=== PATIENT | female | born 1985 | race Caucasian/White ===

== ENCOUNTER 2018-05-31 21:21 | Emergency (ER) | payer SELFPAY ==
[2018-05-31] MEDS ORDERED: MAG HYDROX/AL HYDROX/SIMETH 30 ML UDC PO STA (21:47)
[2018-05-31] MEDS ORDERED: FAMOTIDINE 20 MG in SODIUM CHLORIDE 0.9% 50 ML IV STA (21:47)
[2018-05-31] MEDS ORDERED: SODIUM CHLORIDE 0.9% 1,000 ML IV ONE (21:47)
--- NOTE | 2018-05-31 21:47 | ED Physician Documentation ---
PD HPI ABD PAIN - Stated complaint Stated Complaint: FLU SX - Chief complaint Chief Complaint: Abd Pain - Additional information Additional information: 32-year-old female presents the emergency department with complaints of epigastric pain which is been intermittent and worsening over the past several days. Symptoms are brought on with food and liquids. The patient reports pain that radiates around her right upper abdomen into her right upper back. The patient denies shortness of breath. The patient denies lower abdominal pain. Symptoms reoccurred this evening after eating. Symptoms are described as moderate. No other associated symptoms. No relieving factors Review of Systems Constitutional: denies: Fever, Fatigue Eyes: denies: Discharge Ears: denies: Ear pain Nose: denies: Congestion Throat: denies: Sore throat Cardiac: denies: Chest pain / pressure Respiratory: denies: Cough GI: reports: Abdominal Pain, Nausea. denies: Vomiting, Diarrhea : denies: Dysuria Skin: denies: Rash Musculoskeletal: denies: Neck pain Neurologic: denies: Generalized weakness Immunocompromised: denies: Chemotherapy PD PAST MEDICAL HISTORY - Present Medications Home Medications: Ambulatory Orders Medication Instructions Recorded Confirmed No Known Home Medications 05/31/18 05/31/18 - Allergies Allergies/Adverse Reactions: Allergies Allergy/AdvReac Type Severity Reaction Status Date / Time No Known Drug Allergies Allergy Verified 05/31/18 21:34 PD ED PE NORMAL - General General: Alert and oriented X 3, No acute distress - HEENT HEENT: Atraumatic, PERRL, EOMI, Ears normal - Cardiac Cardiac: RRR, Strong equal pulses - Respiratory Respiratory: No respiratory distress, Clear bilaterally - Abdomen Abdomen: Soft, Non distended. No: Non tender (Tender to palpation in the epigastrium, no rebound or peritoneal signs, no tenderness in the lower abdomen) - Back Back: No CVA TTP - Derm Derm: Normal color - Extremities Extremities: No deformity, No edema - Neuro Neuro: Alert and oriented X 3, Normal speech - Psych Psych: Normal affect Results - Vitals Vitals: Vital Signs - 24 hr 05/31/18 05/31/18 05/31/18 21:31 22:41 23:12 Temperature 36.7 C Heart Rate 69 71 85 Respiratory 18 16 16 Rate Blood Pressure 104/67 99/61 126/76 O2 Saturation 98 99 99 Oxygen O2 Source Room air - EKG (time done) No standard instances Rhythm: NSR Intervals: Normal SC, QRS normal QRS: Normal Ischemia: Normal ST segments - Labs Labs: Laboratory Tests 05/31/18 05/31/18 05/31/18 21:50 21:50 22:55 WBC 5.8 RBC 4.68 Hgb 14.0 Hct 41.1 MCV 87.9 MCH 29.9 MCHC 34.0 RDW 13.3 Plt Count 205 MPV 8.0 Neut # (Auto) 3.4 Lymph # (Auto) 1.6 [place] # (Auto) 0.6 Eos # (Auto) 0.2 Baso # (Auto) 0.0 Absolute Nucleated RBC 0.00 Nucleated RBC % 0.0 Sodium 138 Potassium 3.2 L Chloride 102 Carbon Dioxide 26 Anion Gap 10.0 BUN 14 Creatinine 0.6 Estimated GFR (MDRD) 117 Glucose 106 H Calcium 8.5 Total Bilirubin 0.7 AST 34 ALT 49 Alkaline Phosphatase 50 Total Protein 7.1 Albumin 3.9 Globulin 3.2 Albumin/Globulin Ratio 1.2 Lipase 26 Serum HCG, Qual NEGATIVE Urine Color YELLOW Urine Clarity HAZY Urine pH 5.5 Ur Specific [place] >=1.030 H Urine Protein NEGATIVE Urine Glucose (UA) NEGATIVE Urine Ketones NEGATIVE Urine Occult Blood LARGE H Urine Nitrite NEGATIVE Urine Bilirubin NEGATIVE Urine Urobilinogen 1 (NORMAL) Ur Leukocyte Esterase NEGATIVE Urine RBC 6-10 H Urine WBC 0-3 Ur Squamous Epith Cells FEW Squamous Urine Crystals 6-10 Uric Acid Urine Bacteria Rare Ur Microscopic Review INDICATED Urine Culture Comments NOT INDICATED - Rads (name of study) US ruq Radiology: Final report received, See rad report ( No cholelithiasis or sonographic evidence for acute cholecystitis. ) PD MEDICAL DECISION MAKING - ED course ED course: On reevaluation the patient is resting comfortably and her symptoms are under control. The patient's workup does not reveal an acute etiology that would necessitate admission to the hospital or acute surgical consultation. The patient's symptoms most likely represent gastritis. I recommended [id number] medications and advised to not smoke. The patient will follow up with primary care and will get a outpatient EGD as needed. I advised returning for any worsening or any concerns Departure - Departure Disposition: 01 Home, Self Care Clinical Impression: Epigastric pain Condition: Good Instructions: Abdominal Pain, ED Gastritis Comments: Please follow-up with primary care for recheck and reevaluation. If your symptoms not improving you may need a referral to gastroenterology for endoscopy to further assess your symptoms. You may want to take [id number] Zantac or Pepcid to help manage her symptoms Please return to the emergency department for any worsening or any concerns
[2018-05-31] MEDS: METOCLOPRAMIDE 10 MG/2 ML VIAL IVP STA ×2 (22:01→22:03)
[2018-05-31 22:17] LABS: BASOPHILS % (AUTO) 0.6 %; EOSINOPHILS # (AUTO) 0.2 10^3/uL (0.0-0.7); EOSINOPHILS % (AUTO) 2.8 %; LYMPHOCYTES # (AUTO) 1.6 10^3/uL (1.5-3.5); LYMPHOCYTES % (AUTO) 27.1 %; MEAN CORPUSCULAR HEMOGLOBIN 29.9 pg (27.0-31.0); MEAN CORPUSCULAR VOLUME 87.9 fL (81.0-99.0); MONOCYTES # (AUTO) 0.6 10^3/uL (0.0-1.0); NEUTROPHILS # (AUTO) 3.4 10^3/uL (1.5-6.6); NEUTROPHILS % (AUTO) 58.5 %; PLT - PLATELET COUNT 205 10^3/uL (130-450); RED BLOOD COUNT 4.68 10^6/uL (4.20-5.40); RED CELL DISTRIBUTION WIDTH 13.3 % (12.0-15.0); WHITE BLOOD COUNT 5.8 x10^3/uL (4.8-10.8)
[2018-05-31 22:37] LABS: ALBUMIN 3.9 g/dL (3.2-5.5); ALBUMIN/GLOBULIN RATIO 1.2 (1.0-2.2); ALKALINE PHOSPHATASE 50 IU/L (42-121); ALT ALANINE AMINOTRANSFERASE 49 IU/L (10-60); AST ASPARTATE AMINOTRANSFERASE 34 IU/L (10-42); BILIRUBIN,TOTAL 0.7 mg/dL (0.2-1.0); BUN - BLOOD UREA NITROGEN 14 mg/dL (6-20); CALCIUM 8.5 mg/dL (8.5-10.3); CARBON DIOXIDE - CO2 26 mmol/L (21-32); CHLORIDE 102 mmol/L (101-111); CREATININE 0.6 mg/dL (0.4-1.0); GFR - MDRD 117 (>89); GLUCOSE 106 mg/dL (70-100); LIPASE 26 U/L (22-51); SODIUM 138 mmol/L (135-145); TOTAL PROTEIN 7.1 g/dL (6.7-8.2)
[2018-05-31 22:39] LABS: HCG,QUALITATIVE BLOOD NEGATIVE
[2018-05-31 23:08] LABS: BILIRUBIN,URINE NEGATIVE (NEGATIVE); GLUCOSE, URINE (UA) NEGATIVE (NEGATIVE); KETONES,URINE (UA) NEGATIVE (NEGATIVE); LEUKOCYTE ESTERASE, URINE NEGATIVE (NEGATIVE); NITRITE,URINE NEGATIVE (NEGATIVE); OCCULT BLOOD,URINE LARGE (NEGATIVE); PH,URINE 5.5 PH (5.0-7.5); PROTEIN,URINE NEGATIVE (NEGATIVE); UROBILINOGEN,URINE 1 (NORMAL) E.U./dL (NORMAL)
--- NOTE | 2018-05-31 23:10 | Ultrasound Report ---
Reason: Epigastric pain Procedure Date: 05/31/2018 Accession Number: [id number] / [id number] Procedure: US - Abdomen Limited CPT Code: FULL RESULT: EXAM: ABDOMEN ULTRASOUND LIMITED, RUQ EXAM DATE: 05/31/2018 10:34 PM. CLINICAL HISTORY: Epigastric pain. COMPARISON: None. TECHNIQUE: Real-time scanning was performed with static images obtained. FINDINGS: Liver: Mildly heterogeneous, echogenic parenchyma. 0.7 cm simple cyst in the right hepatic lobe. Main portal vein flow: Hepatopetal. Gallbladder: Normal. No stones, wall thickening, or sonographic Winters's sign. Biliary System: CBD measures 5-6 mm. No intrahepatic or extrahepatic ductal dilatation. Pancreas: Unremarkable as visualized. Right Kidney: 11.3 cm in length. Normal parenchymal echotexture. No visualized shadowing stones or hydronephrosis. IMPRESSION: 1. Mildly heterogeneous, echogenic hepatic parenchyma, most commonly indicating steatosis. 2. Subcentimeter simple hepatic cyst, a benign incidental finding. 3. No cholelithiasis or sonographic evidence for acute cholecystitis. RADIA
[2018-05-31 23:12] LABS: CLARITY,URINE HAZY (CLEAR)
[2018-05-31] MEDS ORDERED: KETOROLAC 15 MG/ML VIAL IVP STA (23:14)
[2018-05-31 23:18] LABS: SQUAMOUS EPITHELIAL CELL,UR FEW Squamous (<= Few)
[2018-05-31 23:19] LABS: BACTERIA,URINE Rare /HPF (None Seen)
[2018-05-31 23:20] LABS: CRYSTALS,URINE 6-10 Uric Acid /LPF
[2018-06-01 00:09] VITALS: BP 118/61
== END 2018-06-01 00:09 | disposition home or self-care (01) ==
LOC: ED 21:21
DX: R10.13 Epigastric pain (principal)
CPT/HCPCS: 36415; 76705; 80053; 81001; 83690; 84703; 85025; 93005; 96361; 96365; 96375; 99284; A9270; J2765; J7040; 81003; 87086

== ENCOUNTER 2018-09-08 04:52 | Emergency (ER) | payer OTHER ==
[2018-09-08] MEDS ORDERED: ONDANSETRON 4 MG/2 ML VIAL IVP STA (05:12)
[2018-09-08] MEDS ORDERED: SODIUM CHLORIDE 0.9% 1,000 ML IV ONE (05:12)
--- NOTE | 2018-09-08 05:16 | ED Physician Documentation ---
History of Present Illness - Stated complaint Stated Complaint: VOMITING - Chief complaint Chief Complaint: Abd Pain - History obtained from History obtained from: Patient - History of Present Illness Timing: Prior to arrival - Additonal information Additional information: Patient is a previously healthy 32-year-old female presenting with persistent vomiting and diarrhea that began just prior to arrival. Patient was at a barbecue last evening and ate multiple different kinds of foods that have been sitting outside, as well as drink alcohol. Patient denies other recreational drug use. Patient denies associated urinary changes, fever, or other complaints. Patient describes as a-like discomfort. Patient denies symptoms prior to the barbecue or recent new medications. Patient tried Pepto-Bismol at home without improvement. No other improving or worsening factors noted. Review of Systems Constitutional: denies: Fever GI: reports: Abdominal Pain, Vomiting, Diarrhea PD PAST MEDICAL HISTORY - Past Medical History Past Medical History: No - Past Surgical History Past Surgical History: Yes /HANGER OFF: Other - Present Medications Home Medications: Ambulatory Orders Medication Instructions Recorded Confirmed Ondansetron Odt [Zofran] 4 mg TL Q6H PRN #10 tablet 09/08/18 - Allergies Allergies/Adverse Reactions: Allergies Allergy/AdvReac Type Severity Reaction Status Date / Time No Known Drug Allergies Allergy Verified 09/08/18 05:05 - Social History Does the pt smoke?: Yes Smoking Status: Current every day smoker Does the pt drink ETOH?: Yes Does the pt have substance abuse?: No - Immunizations Immunizations are current?: No - POLST Patient has POLST: No PD ED PE NORMAL - Vitals Vital signs reviewed: Yes - General General: Alert and oriented X 3, No acute distress, Well developed/nourished - HEENT HEENT: Atraumatic, Moist mucous membranes - Cardiac Cardiac: RRR, No murmur - Respiratory Respiratory: No respiratory distress, Clear bilaterally - Abdomen Abdomen: Normal bowel sounds, Soft, Non tender, Non distended, Other (No guarding or rebound.) - Derm Derm: Normal color, Warm and dry - Extremities Extremities: No deformity, No tenderness to palpate - Neuro Neuro: Alert and oriented X 3, No motor deficit, No sensory deficit - Psych Psych: Normal mood, Normal affect Results - Vitals Vitals: Vital Signs - 24 hr 09/08/18 09/08/18 09/08/18 04:57 05:05 06:25 Temperature 36.2 C L Heart Rate 81 67 Respiratory 18 20 20 Rate Blood Pressure 134/88 H 104/77 O2 Saturation 98 99 Oxygen O2 Source Room air - Labs Labs: Laboratory Tests 09/08/18 09/08/18 09/08/18 05:05 05:05 06:00 WBC 6.4 RBC 4.97 Hgb 14.5 Hct 43.1 MCV 86.8 MCH 29.2 MCHC 33.6 RDW 13.5 Plt Count 294 MPV 8.2 Neut # (Auto) 3.1 Lymph # (Auto) 2.8 [place] # (Auto) 0.4 Eos # (Auto) 0.1 Baso # (Auto) 0.0 Absolute Nucleated RBC 0.01 Nucleated RBC % 0.1 Sodium 140 Potassium 3.3 L Chloride 106 Carbon Dioxide 22 Anion Gap 12.0 BUN 18 Creatinine 0.6 Estimated GFR (MDRD) 117 Glucose 140 H Calcium 9.0 Total Bilirubin 0.7 AST 25 ALT 38 Alkaline Phosphatase 53 Total Protein 8.1 Albumin 4.5 Globulin 3.6 Albumin/Globulin Ratio 1.3 Lipase 26 Urine Color YELLOW Urine Clarity CLEAR Urine pH 7.5 Ur Specific [place] 1.015 Urine Protein NEGATIVE Urine Glucose (UA) NEGATIVE Urine Ketones NEGATIVE Urine Occult Blood LARGE H Urine Nitrite NEGATIVE Urine Bilirubin NEGATIVE Urine Urobilinogen 0.2 (NORMAL) Ur Leukocyte Esterase TRACE H Urine RBC 6-10 H Urine WBC 0-3 Ur Squamous Epith Cells MOD Squamous H Urine Bacteria Rare Ur Microscopic Review INDICATED Urine Culture Comments NOT INDICATED Urine HCG, Qual NEGATIVE PD MEDICAL DECISION MAKING - ED course Complexity details: reviewed results, re-evaluated patient, considered differential, d/w patient, d/w family ED course: Patient's presentation is most consistent with a foodborne or viral illness. Patient describes acid-like discomfort which is likely from repetitive vomiting. Feel that she is likely experiencing isolated GERD symptoms because of this illness as opposed to chronic GERD or peptic ulcer disease. Also have lower suspicion for other intra-abdominal pathology including liver disease, pancreatitis, gallbladder disease, appendicitis, AAA, diverticulitis, small bowel obstruction, but considered. Patient has benign abdominal exam. Certainly, no acute or surgical abdomen present. Patient also denies symptoms and do not find evidence of such on exam that would indicate renal disease or UTI. Also have low suspicion for pelvic etiologies at this time including ovarian torsion or cyst. Patient started on IV fluids and nausea medication. Screening lab work and urinalysis ordered. Do not feel patient will require imaging at this time.Screening lab work and urinalysis returned relatively unremarkable. Patient's symptoms well controlled in ED. Discussed results and recommendations with patient including diet hydration recommendations, use of Zofran at home, return precautions, and appropriate follow-up. Departure - Departure Disposition: Home, Self Care Clinical Impression: Diarrhea Qualifiers: Diarrhea type: unspecified type Qualified Code(s): R19.7 - Diarrhea, unspecified Vomiting Qualifiers: Vomiting type: unspecified Vomiting Intractability: non-intractable Nausea presence: with nausea Qualified Code(s): R11.2 - Nausea with vomiting, unspecified Condition: Good Instructions: ED Diet Vomiting Diarrhea Follow-Up: your,doctor [Other] - Within 3 Days Prescriptions: Ondansetron Odt [Zofran] 4 mg TL Q6H PRN #10 tablet PRN Reason: Nausea / Vomiting Comments: Please use Zofran as prescribed to help control nausea and vomiting. Recommend hydration with Powerade/Gatorade and advancing diet as tolerated. Please follow-up with primary care physician in next 2 to 3 days and return to ED sooner if expands worsening symptoms or other concerns.
[2018-09-08 05:39] LABS: BASOPHILS % (AUTO) 0.7 %; EOSINOPHILS # (AUTO) 0.1 10^3/uL (0.0-0.7); EOSINOPHILS % (AUTO) 2.1 %; HGB - HEMOGLOBIN 14.5 g/dL (12.0-16.0); LYMPHOCYTES # (AUTO) 2.8 10^3/uL (1.5-3.5); LYMPHOCYTES % (AUTO) 42.8 %; MEAN CORPUSCULAR HEMOGLOBIN 29.2 pg (27.0-31.0); MEAN CORPUSCULAR HGB CONC 33.6 g/dL (32.0-36.0); MEAN CORPUSCULAR VOLUME 86.8 fL (81.0-99.0); MEAN PLATELET VOLUME 8.2 fL (7.9-10.8); MONOCYTES # (AUTO) 0.4 10^3/uL (0.0-1.0); NEUTROPHILS # (AUTO) 3.1 10^3/uL (1.5-6.6); NEUTROPHILS % (AUTO) 48.4 %; PLT - PLATELET COUNT 294 10^3/uL (130-450); RED BLOOD COUNT 4.97 10^6/uL (4.20-5.40); RED CELL DISTRIBUTION WIDTH 13.5 % (12.0-15.0); WHITE BLOOD COUNT 6.4 x10^3/uL (4.8-10.8)
[2018-09-08] MEDS ORDERED: MAG HYDROX/AL HYDROX/SIMETH 30 ML UDC PO STA (05:41)
[2018-09-08 05:50] LABS: ALBUMIN 4.5 g/dL (3.2-5.5); ALBUMIN/GLOBULIN RATIO 1.3 (1.0-2.2); BILIRUBIN,TOTAL 0.7 mg/dL (0.2-1.0); CREATININE 0.6 mg/dL (0.4-1.0); TOTAL PROTEIN 8.1 g/dL (6.7-8.2)
[2018-09-08 06:26] VITALS: BP 104/77
[2018-09-08 06:32] LABS: BILIRUBIN,URINE NEGATIVE (NEGATIVE); GLUCOSE, URINE (UA) NEGATIVE (NEGATIVE); KETONES,URINE (UA) NEGATIVE (NEGATIVE); LEUKOCYTE ESTERASE, URINE TRACE (NEGATIVE); NITRITE,URINE NEGATIVE (NEGATIVE); OCCULT BLOOD,URINE LARGE (NEGATIVE); PH,URINE 7.5 PH (5.0-7.5); PROTEIN,URINE NEGATIVE (NEGATIVE); UROBILINOGEN,URINE 0.2 (NORMAL) E.U./dL (NORMAL)
[2018-09-08 06:33] LABS: CLARITY,URINE CLEAR (CLEAR); HCG UR QUAL NEGATIVE
[2018-09-08 06:38] LABS: BACTERIA,URINE Rare /HPF (None Seen); SQUAMOUS EPITHELIAL CELL,UR MOD Squamous (<= Few)
== END 2018-09-08 07:00 | disposition home or self-care (01) ==
LOC: ED 04:52
DX: R19.7 Diarrhea, unspecified (principal); R11.2 Nausea with vomiting, unspecified; F17.200 Nicotine dependence, unspecified, uncomplicated
CPT/HCPCS: 36415; 80053; 81001; 81025; 83690; 85025; 96374; 99283; A9270; 81003; 87086